=== PATIENT | female | born 1955 | race African-American/Black ===

== ENCOUNTER 2017-05-08 14:36 | Emergency (ER) | payer OTHER, SELFPAY ==
[~2017-05-08] VITALS: Ht 160 cm; Wt 66.2 kg
[~2017-05-08 14:36] MED LIST: BENADRYL25 MG ORAL; CLINDAMYCIN HC300 MG ORAL
[2017-05-08] MEDS ORDERED: HYDROCHLOROTH12.5 M2 ORAL (14:42)
[2017-05-08 14:48] VITALS: BP 153/97
[2017-05-08] MEDS ORDERED: Famotidine 20 MG/ 2ML VIAL IVP ONE (15:00)
[2017-05-08] MEDS ORDERED: Metoclopramide 10mg/2ml Inj IVP ONE (15:00)
[2017-05-08] MEDS ORDERED: Dicyclomine HCl 10mg/5ml oral soln ORAL ONE (15:00)
[2017-05-08] MEDS ORDERED: Morphine Sulfate 2mg/ml Inj IVP ONE (15:45)
[2017-05-08 16:12] LABS: APPEARANCE,URINE CLEAR; KETONES,URINE 3+ (NEGATIVE); LEUKOCYTE ESTERASE ,URINE NEGATIVE (NEGATIVE); NITRITE,URINE NEGATIVE (NEGATIVE); PH,URINE 6.5 (4.5-8.0); PROTEIN,URINE NEGATIVE (NEGATIVE); UROBILINOGEN,URINE NORMAL MG/DL (0.0-1.0)
[2017-05-08 16:30] LABS: MEAN CORPUSCULAR HGB CONC 32.4 G/DL (32.0-36.0); MEAN CORPUSCULAR VOLUME 99 FL (80-99); MEAN PLATELET VOLUME 6.7 FL (6.5-10.1); PLATELET COUNT 277 K/UL (150-450); RED BLOOD COUNT 4.94 M/UL (4.20-5.40); RED CELL DISTRIBUTION WIDTH 12.6 % (11.6-14.8); WHITE BLOOD COUNT 14.6 K/UL (4.8-10.8)
[2017-05-08 16:39] VITALS: BP 127/80
[2017-05-08 16:58] LABS: ALANINE AMINOTRANSFERASE 36 U/L (3-33); ANION GAP 15 (5-15); ASPARTATE AMINO TRANSFERASE 45 U/L (5-40); CALCIUM 9.3 mg/dL (8.6-10.2); CARBON DIOXIDE 23 mEQ/L (20-30); CHLORIDE 100 mEQ/L (98-107); CREATININE 0.8 mg/dL (0.5-0.9); GLOMERULAR FILTRATION RATE > 60 mL/min (>60); HEMOLYSIS 3; LIPASE 56 U/L (< 60); POTASSIUM 3.6 mEQ/L (3.4-4.9); SODIUM 138 mEQ/L (135-145); TOTAL PROTEIN 8.2 g/dL (6.6-8.7); TROPONIN I < 0.30 ng/mL (<=0.30)
[2017-05-08] MEDS ORDERED: ZOFRAN ODT4 MG ORAL (17:15)
[2017-05-08] MEDS ORDERED: PEPCID20 MG ORAL (17:15)
[2017-05-08 17:18] VITALS: BP 127/80
[2017-05-08 17:20] LABS: BAND NEUTROPHILS % (MANUAL) 1 % (0-8); BASOPHILS % (MANUAL) 0 % (0-2); EOSINOPHILS % (MANUAL) 0 % (0-3); LYMPHOCYTES % (MANUAL) 10 % (20-45); NEUTROPHILS % (MANUAL) 84 % (45-75); PLATELET ESTIMATE ADEQUATE; PLATELET MORPHOLOGY NORMAL; TOTAL CELLS COUNTED 100
--- NOTE | 2017-05-08 17:41 | Emergency Room Report ---
History of Present Illness General Chief Complaint: Abdominal Pain Source: Patient Present Illness HPI [id number] BIBEMS with epigastric pain, sharp, burning, 6/10, non-radiating with nausea/vomiting since this morning. Denies diarrhea. Having normal BMs. Had ribs and potato salad last night for dinner. No previous surgery. No sick contacts. History of HTN. Been taking allen jazz, crackers at home but cant keep anything down No urinary complaints Allergies: Coded Allergies: No Known Allergies (Unverified , 12/17/13) Patient History Past Medical History: HTN Past Surgical History: none Pertinent Family History: none Social History: Denies: smoking, alcohol use, drug use Now: No Immunizations: UTD Reviewed Nursing Documentation: PMH: Agreed, PSxH: Agreed Nursing Documentation-PMH Hx Hypertension: Yes Hx Gastrointestinal Problems: Yes - Reflux Review of Systems All Other Systems: negative except mentioned in HPI Physical Exam Vital Signs Date Time Temp Pulse Resp B/P (MAP) Pulse Ox O2 Delivery O2 Flow Rate FiO2 05/08/17 14:35 52 18 153/97 95 Room Air 05/08/17 14:48 97.4 Sp02 EP Interpretation: reviewed, normal General Appearance: normal inspection, well appearing, no apparent distress, alert, GCS 15, non-toxic Head: normocephalic, atraumatic Eyes: bilateral eye PERRL, bilateral eye EOMI ENT: normal ENT inspection, hearing grossly normal, normal voice Neck: normal inspection, full range of motion, supple, no bony tend Respiratory: normal inspection, lungs clear, normal breath sounds, no respiratory distress, no retraction, no wheezing Cardiovascular #1: regular rate, rhythm, no edema Gastrointestinal: normal inspection, normal bowel sounds, soft, no guarding, no hernia, other - +epigastric ttp. No rebound, guarding Genitourinary: no CVA tenderness Musculoskeletal: normal inspection, back normal, normal range of motion, Mateusz' s Sign negative Neurologic: normal inspection, alert, oriented x3, responsive, patient attendant III-XII nml as tested, motor strength/tone normal, speech normal Psychiatric: normal inspection, judgement/insight normal, mood/affect normal Skin: normal inspection, normal color, no rash Lymphatic: normal inspection Medical Decision Making Diagnostic Impression: Primary Impression: Abdominal pain Qualified Codes: R10.13 - Epigastric pain Additional Impression: Gastritis Qualified Codes: K29.00 - Acute gastritis without bleeding ER Course Labs: Mild leuks. Mild LFT elevation. UA negative for infection Utox + for marijuana After GI cocktail, abd exam serially non-tender Feels much better Tolerating PO Likely gastritis, gastroenteritis Unlikely ACS given ECG with NSR. Troponin 0. No ischemia or CAD risk factors. DC home with zofran, pepcid Patient is instructed to follow up with their primary care doctor within 5 days. Strict return precautions discussed with patient such as fever, chills, worsening/severe pain, nausea, vomiting, which may indicate severe illness. Patient verbalizes understanding and agrees with plan. EKG Diagnostic Results Rate: normal Rhythm: NSR ST Segments: no acute changes ASA given to the pt in ED: No Rhythm Strip Diag. Results EP Interpretation: yes Rate: 52 Rhythm: NSR, no PVC's, no ectopy Last Vital Signs Date Time Temp Pulse Resp B/P (MAP) Pulse Ox O2 Delivery O2 Flow Rate FiO2 05/08/17 17:18 97.4 78 27 127/80 97 Room Air Status: improved Disposition: HOME, SELF-CARE Condition: Improved Scripts Famotidine (PEPCID) 20 Mg Tablet 20 MG ORAL BID for 7 Days, #14 TAB 0 Refills Prov: RADHA ALEXANDER M.D. 05/08/17 Ondansetron Odt* (ZOFRAN ODT*) 4 Mg Tab.rapdis 4 MG ORAL Q12HR Y for Nausea & Vomiting for 7 Days, #14 TAB 0 Refills Prov: RADHA ALEXANDER M.D. 05/08/17 Patient Instructions: Gastritis, Adult, [id number] RADHA ALEXANDER M.D. May 08, 2017 17:41
--- NOTE | 2017-05-09 15:36 | Cardiology Report ---
APPROVED REPORT EKG Measurement Heart [id number] Sinus bradycardia Prolonged QT Abnormal ECG
== END 2017-05-08 17:18 | disposition home or self-care (01) ==
LOC: EDBD 14:36 → EMR 16:27
DX: R10.13 Epigastric pain (principal); K29.00 Acute gastritis without bleeding; F12.10 Cannabis abuse, uncomplicated; I10 Essential (primary) hypertension; K21.9 Gastro-esophageal reflux disease without esophagitis
CPT/HCPCS: 36415; 80053; 80300; 81003; 83690; 84484; 85007; 85025; 93005; 96374; 96375; 99284; J2270; J2405; J2765; S0028

== ENCOUNTER 2019-06-07 20:11 | Emergency (ER) | payer SELFPAY ==
[~2019-06-07] VITALS: Ht 152.4 cm; Wt 59.0 kg
[~2019-06-07 20:11] MED LIST changes: +HYDROCHLOROTH12.5 M2 ORAL; +PEPCID20 MG ORAL; +ZOFRAN ODT4 MG ORAL
[2019-06-07 20:21] VITALS: BP 113/83
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
--- NOTE | 2019-06-07 20:46 | NUR ---
ED Nurse Note: Went down for Xray.
--- NOTE | 2019-06-07 21:01 | NUR ---
ED Nurse Note: Came back from Xray.
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
[2019-06-07] MEDS ORDERED: IBUPROFEN600 MG ORAL (21:30)
--- NOTE | 2019-06-07 21:35 | NUR ---
ELOPEMENT: Patient states that she cannot wait any longer for the results. After few minutes, patient left without notice. MD and Charge nurse were notified. Addendum: 06/07/19 at 2157 by MUNIRA ED Nurse Note: Toradol IM wasnt given, patient eloped. MD notified. Discharged summary wasnt provided.
[2019-06-07] MEDS ORDERED: Ketorolac 30mg Inj ONE (21:36)
[2019-06-07] MEDS ORDERED: Ketorolac 30mg Inj IM ONE (21:45)
== END 2019-06-07 21:35 | disposition home or self-care (01) ==
LOC: EMR 20:34
DX: S20.219A Contusion of unspecified front wall of thorax, initial encounter (principal); S80.02XA Contusion of left knee, initial encounter; S69.92XA Unspecified injury of left wrist, hand and finger(s), initial encounter; I10 Essential (primary) hypertension; K21.9 Gastro-esophageal reflux disease without esophagitis; W05.2XXA Fall from non-moving motorized mobility scooter, initial encounter; Y92.9 Unspecified place or not applicable
CPT/HCPCS: 99282